=== PATIENT | male | born 1975 | race Caucasian/White ===

== ENCOUNTER 2020-09-19 11:58 | Emergency (ER) | payer MEDICARE, SELFPAY ==
[2020-09-19 12:00] VITALS: BP 144/93; PULSE 71; RESP 15; TEMP 36.7; O2SAT 99; BMI 25.3
--- NOTE | 2020-09-19 12:03 | RAD_ITS ---
STUDY: X-RAY CHEST REASON FOR EXAM: Male, 45 years old. Chest pain TECHNIQUE: Single AP portable view of the chest. COMPARISON: Comparison is made with prior examination of 06/09/2011. FINDINGS: EKG electrodes are seen. Hyperinflation. The lungs are clear. There is no demonstrated pleural abnormality. Normal size heart. Normal mediastinum and raymond. Normal visualized pulmonary arteries. Normal visualized aortic arch and descending thoracic aorta. Normal visualized thoracic spine. Normal visualized ribs, clavicles, and shoulders. There is no demonstrated abnormality of the visualized soft tissue structures of the upper abdomen. RAD/Chest 1 View (Portable) IMPRESSION: Normal x-ray examination of the chest. Electronically Signed: Aram Robin MD at 12:38 EDT , Service support ,
--- NOTE | 2020-09-19 12:03 | EKG12_ITS ---
Test Reason : VITO PAIN Blood Pressure : / mmHG Vent. Rate : 067 BPM Atrial Rate : 067 BPM P-R Int : 148 ms QRS Dur : 084 ms QT Int : 394 ms P-R-T Axes : 050 -10 017 degrees QTc Int : 416 ms Normal sinus rhythm Septal infarct , age undetermined Abnormal ECG Confirmed by TAISHA SALVADOR, SAMUEL ([id number]), videotape editor MIRLANDE MARQUES ([id number]) on 09/23/2020 9:12:57 AM Referred By: SONJA Confirmed By:DONNA SUMNER MD
--- NOTE | 2020-09-19 12:04 | ED.DCSUM_ITS ---
History of Present Illness Chief Complaint: Chest Pain Informant: Patient Onset: Today Context: Gradual Onset Timing: Continuous Current Severity: Moderate Maximum Severity: Moderate Narrative: Patient is a 45-year-old male medical history significant for pots syndrome who presents to the emergency department chest pain. 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 He states at 9 AM, he began to have pain in the left side of his chest. He states it radiates to his left shoulder. He denies shortness of breath. He denies nausea or vomiting. He has no history of coronary vascular disease. He does not smoke. He states he is otherwise been in his normal state of health. He does have history of daily migraines. He states from time to time, he will get pain with his pots, but not like this. Prior similar symptoms: Yes Recent Illness/Hospitalization: No Past Medical History - Allergies and Home Meds Allergies/Adverse Reactions: Allergies indomethacin Adverse Reaction (Verified 09/19/20 11:59) Chest tightness ketorolac [From Toradol] Adverse Reaction (Verified 09/19/20 11:59) Chest tightness meperidine [From Demerol] Adverse Reaction (Verified 09/19/20 11:59) Chest tightness Morpholine Analogues Adverse Reaction (Verified 09/19/20 11:59) Chest tightness Primary Care Physician: NOT,DEFINED [NON-STAFF] - Prior records reviewed: Yes Past Medical History: - - Chronic daily migraines, pots syndrome Surgical History: noncontributory Smoking Status: Never smoker Review of Systems General: Denies: Chills, Fever, Sweats Eyes: Denies: Visual changes - bilaterally, Diplopia ENT: Denies: Rhinorrhea, Sore throat Cardiovascular: Reports: Chest pain. Denies: Palpitations Respiratory: Denies: Dyspnea, Cough, Dyspnea on exertion Gastrointestinal: Denies: Abdominal pain, Nausea, Vomiting, Diarrhea, Melena, Hematochezia Genitourinary: Denies: Dysuria, Hematuria, Frequency Musculoskeletal: Denies: Back pain, Extremity Pain Skin: Denies: Rash, Wounds Neurological: Denies: Headache, Weakness, Numbness Physical Exam Vital Signs/Narrative: Vital Signs Temp Pulse Resp BP Pulse Ox 09/19/20 12:00 98.0 F 71 15 144/93 H 99 Inital Vital Signs reviewed: Yes General: Well nourished, Well developed, No Acute Distress Head: Normocephalic, Atraumatic Eyes: Perrl, EOMI ENT: Moist mucous membranes, No rhinorrhea Neck: Supple, Nontender Cardiovascular: Regular rate, Regular rhythm, No murmurs Respiratory: No distress, CTA bilaterally, Chest nontender Abdomen: Soft, Nontender, Nondistended, Normal bowel sounds Back: Nontender, Normal Inspection Extremities: Nontender, No edema Skin: Normal color, No rash Neurological: Alert, Oriented x3, Cranial nerves II-XII grossly intact, Normal Strength, Normal Sensation Psychological: Normal affect, Normal Mood Diagnostic/Tx/Re-eval Chest X-Ray - ED: 1 View, Read by ED Physician, Read by Radiologist, Normal, Heart, Lungs, Mediastinum, Bony Structures Clinical Impression(s) from Imaging Studies Chest X-Ray 09/19/20 12:03 IMPRESSION: Normal x-ray examination of the chest. Electronically Signed: Aram Robin MD at 12:38 EDT , Service support , Abnormal Lab Results 09/19/20 09/19/20 09/19/20 12:17 12:17 12:17 WBC 7.0 RBC 4.88 Hgb 14.9 Hct 45.1 MCV 92.4 MCH 30.5 MCHC 33.0 RDW Std Deviation 42.7 RDW Coeff of Bryan 12.5 Plt Count 184 MPV 10.2 Immature Gran % (Auto) 0.100 Neut % (Auto) 58.3 Lymph % (Auto) 27.9 [place] % (Auto) 8.1 Eos % (Auto) 5.0 Baso % (Auto) 0.6 Absolute Neuts (auto) 4.1 Absolute Lymphs (auto) 1.95 Nucleated RBC % 0 D-Dimer Quant (PE/DVT) <= 0.27 Sodium 135 L Potassium 4.2 Chloride 102 Carbon Dioxide 31.0 Anion Gap 2 L BUN 19 H Creatinine 1.15 Estim Creat Clear Calc 92.64 Est GFR (MDRD) Af Amer 89 Est GFR (MDRD) Non-Af 73 BUN/Creatinine Ratio 16.5 Glucose 131 H Calcium 9.0 Troponin I < 0.015 - Rhythm Strip Rhythm Strip: Sinus Rhythm Rate: 80 Ectopy: None - EKG Initial EKG Interpretation: Sinus Rhythm, No Acute Injury Pattern Prior: Unchanged - Medical Decision Making Patient presents with chest pain on the left side. He has no history of coronary vascular disease. EKG was obtained promptly on arrival. There is no evidence of acute ischemia. The patient has a heart score of 1. He underwent metabolic work-up. Cardiac enzymes were normal. This is done 3 hours after his chest pain onset. I do not feel that his pain represents acute coronary syndrome. I did discuss options with the patient. He states that he just wants to go home and follow-up. He has multiple allergies and states that he would just take Tylenol. I do feel that this is reasonable. The patient is comfortable with this plan of care. His D-dimer was negative. His chest x-ray shows no evidence of acute infiltrative process, pneumothorax, or other infiltrative process. Patient to be discharged home. Impression 1. Chest pain ED Disposition - Plan for ED Patient: Disposition: Home or Assisted Living Instructions: ED Chest Pain, Uncertain Cause Referrals: NOT,DEFINED [NON-STAFF] -
[2020-09-19 12:05] VITALS: O2SAT 97
--- NOTE | 2020-09-19 12:06 | NURSING ---
NO OLD EKGS
[2020-09-19] MEDS: 0.9% Normal Saline 1,000 ML 150 ML IV (12:13)
[2020-09-19] MEDS: Acetaminophen 500 MG Tablet 1000 MG PO (12:13)
[2020-09-19 12:21] LABS: Absolute Lymphocyte Count 1.95 X10^3/uL (0.83-4.51); Absolute Neutrophil Count 4.1 X10^3/uL (2.0-7.7); Basophil# 0.04 X10^3/uL; Basophil% 0.6 % (0-1); Eosinophil# 0.35 X10^3/uL; Hematocrit 45.1 % (40-54); Hemoglobin 14.9 g/dL (13.0-16.5); Lymphocyte # 1.95 X10^3/ul (0.83-4.51); Lymphocyte % 27.9 % (19-41); Mean Corpuscular Hgb 30.5 pg (27.0-32.0); Mean Corpuscular Volume 92.4 fL (80-94); Mean Platelet Vol. 10.2 fl (6.2-12.0); Monocyte# 0.57 X10^3/uL; Monocyte% 8.1 % (0-10); NRBC Flagged by Analyzer 0 % (0-5); Neutrophil # 4.08 X10^3/uL (2.7-7.7); Neutrophil % 58.3 % (47-70); Platelet Count 184 K/mm3 (150-450); RBC Distribution Width CV 12.5 % (11.6-14.6); RBC Distribution Width SD 42.7 fl (35.1-43.9); Red Blood Count 4.88 M/mm3 (4.6-6.2)
[2020-09-19 12:39] LABS: Anion Gap 2 (5-15); BUN 19 mg/dL (7-18); BUN/Creat Ratio 16.5 RATIO (10-20); Chloride 102 mmol/L (98-107); Creatinine, Serum 1.15 mg/dL (0.70-1.30); EST Glomerular Filtration Rate 73 mL/min (>60); Est Glom Filt Rate - Afr Amer 89 mL/min (>60); Estimated Creatinine Clearance 92.64 ml/min; Glucose 131 mg/dL (74-106); Potassium 4.2 mmol/L (3.5-5.1); Sodium Level 135 mmol/L (136-145)
[2020-09-19 12:52] LABS: D-Dimer Quantitative (DVT/PE) <= 0.27 FEU/ug/m (0.27-0.49)
[2020-09-19 13:09] VITALS: BP 124/87; PULSE 81; RESP 19; O2SAT 98
== END 2020-09-19 13:09 | disposition home or self-care (01) ==
LOC: ED 12:37
PROVIDERS: Emergency Provider Emergency Medicine; PCP Internal Medicine
DX: R07.9 Chest pain, unspecified (principal); I49.8 Other specified cardiac arrhythmias; Z79.899 Other long term (current) drug therapy
CPT/HCPCS: 71045; 80048; 84484; 85025; 85379; 93005; 96360; 96361; 99285; J7030; A4216

== ENCOUNTER 2021-07-28 11:13 | Outpatient (CLI) | payer SELFPAY ==
--- NOTE | 2021-07-30 16:50 | EKG12_ITS ---
Test Reason : PREOP Blood Pressure : / mmHG Vent. Rate : 077 BPM Atrial Rate : 077 BPM P-R Int : 136 ms QRS Dur : 086 ms QT Int : 358 ms P-R-T Axes : 056 -12 048 degrees QTc Int : 405 ms Normal sinus rhythm with sinus arrhythmia Septal infarct , age undetermined Abnormal ECG Confirmed by ERNIE SALVADOR, VIV ([id number]), supervising editor news reel MIRLANDE MARQUES ([id number]) on 08/03/2021 11:41:18 AM Referred By: Ap Perrin Confirmed By:VIV KLEIN MD
[2021-07-30 17:14] LABS: Hematocrit 43.5 % (40-54); Hemoglobin 15.1 g/dL (13.0-16.5); Mean Corp Hgb Conc 34.7 g/dL (32-36); Mean Corpuscular Hgb 31.5 pg (27.0-32.0); Mean Corpuscular Volume 90.6 fL (80-94); Mean Platelet Vol. 9.7 fl (6.2-12.0); Platelet Count 243 K/mm3 (150-450); RBC Distribution Width CV 12.6 % (11.6-14.6); RBC Distribution Width SD 41.9 fl (35.1-43.9); White Blood Count 6.9 K/mm3 (4.4-11.0)
[2021-07-30 17:57] LABS: Anion Gap 5 (5-15); BUN 17 mg/dL (7-18); BUN/Creat Ratio 14.7 RATIO (10-20); Calcium,Total 9.3 mg/dL (8.5-10.1); Chloride 106 mmol/L (98-107); Creatinine, Serum 1.16 mg/dL (0.70-1.30); EST Glomerular Filtration Rate 72 mL/min (>60); Est Glom Filt Rate - Afr Amer 88 mL/min (>60); Glucose 99 mg/dL (74-106); Potassium 3.8 mmol/L (3.5-5.1); Sodium Level 136 mmol/L (136-145)
== END 2021-07-28 23:59 | disposition home or self-care (01) ==
LOC: PAT 08-20 11:13
PROVIDERS: PCP Internal Medicine; Referring Provider Orthopaedic Surgery; Visit Provider Orthopaedic Surgery
DX: Z01.810 Encounter for preprocedural cardiovascular examination (principal)
CPT/HCPCS: 36415; 80048; 85027; 87426; 93005; C9803

== ENCOUNTER 2022-02-02 06:58 | Emergency (ER) | payer OTHER, SELFPAY ==
[2022-02-02 06:59] VITALS: BP 142/79; PULSE 72; RESP 18; TEMP 36.8; O2SAT 100; BMI 24.0
--- NOTE | 2022-02-02 07:24 | ED.VIS.CHEST ---
HPI History of Present Illness Chief Complaint: Chest Pain Informant: patient Onset/Context/Timing Onset: Yesterday Activity at onset: gradual Timing: Continuous Quality: Positive for Sharp Location: Left Chest Worsened By: Movement of Arm and Breathing Relieved By: Nothing Associated Symptoms: Positive for Diaphoresis and Lightheadedness; Negative for Nausea, Vomiting, Dyspnea, Cough, Fever, Acid Reflux or Palpitations Narrative Narrative: Patient presents with chest pain that began yesterday. Patient states it was intermittent yesterday but today it has been constant. Patient describes the pain as sharp. Patient states it is over the left upper chest. Patient states it radiates into her shoulder. Patient states it is worse with movement of his left arm and with deep breathing. Patient does admit to some occasional sweats. Patient also admits to some lightheadedness. Patient denies any nausea or vomiting. Patient denies any shortness of breath or cough. CVD Risk Factors: Positive for Family History 1' </=55; Negative for Hypertension, Diabetes, Hypercholesterolemia or Smoking PE Risk Factors: Negative for Recent Travel/Surgery, Recent Immobilization, Prior DVT or PE, Cancer or OCP + Smoking + >/=35 PFSH PFSH Medical History Anxiety Arthritis Depression Difficulty swallowing Gastric reflux Injury of head and neck Loose, teeth Marijuana use Migraine headache POTS (postural orthostatic tachycardia syndrome) Syncope Home Medications aspirin 81 mg capsule 81 mg PO DAILY 07/28/21 [History Last Taken Unknown] Allergy/AdvReac Type Severity Reaction Status Date / Time indomethacin AdvReac Chest Verified 07/28/21 14:02 tightness ketorolac [From Toradol] AdvReac Chest Verified 07/28/21 14:02 tightness meperidine [From Demerol] AdvReac Chest Verified 07/28/21 14:02 tightness Morpholine Analogues AdvReac Chest Verified 07/28/21 14:02 tightness Surgical History History of cardiac catheterization Hx of appendectomy Hx of cholecystectomy Hx of esophagogastroduodenoscopy Hx of knee surgery Social History Smoking Status: Never smoker ROS ROS ED Constitutional Constitutional ED: Denies chills or fever(s) Eyes Eyes: Denies blurry vision or change in vision ENT ENT ED: Reports sore throat; Denies rhinorrhea Cardiovascular Cardiovascular: Reports chest pain; Denies palpitations Respiratory/Chest Respiratory/Chest: Reports dyspnea; Denies cough Gastrointestinal Gastrointestinal: Denies abdominal pain, nausea or vomiting Genitourinary Genitourinary ED: Denies dysuria or hematuria Musculoskeletal Musculoskeletal: Reports neck pain; Denies back pain Integumentary Denies abscess or rash Neurologic Neurologic: Reports headache(s); Denies weakness Allergic/Immunologic Allergic/Immunologic ED: Denies mouth swelling or urticaria EXAM Physical Exam Const Vital Signs: 02/02/22 06:59 02/02/22 07:04 02/02/22 07:36 Temperature 98.2 F Temperature Source Oral Pulse Rate 72 63 Respiratory Rate 18 Respiratory Effort Normal Non-Labored Blood Pressure 142/79 H 133/73 H Blood Pressure Mean 100 Pulse Ox 100 Oxygen Delivery Method Room Air 02/02/22 07:38 02/02/22 07:43 02/02/22 07:49 Temperature Temperature Source Pulse Rate 71 78 Respiratory Rate Respiratory Effort Blood Pressure 135/81 H 122/79 H Blood Pressure Mean Pulse Ox Oxygen Delivery Method Room Air 02/02/22 08:08 02/02/22 09:31 Temperature Temperature Source Pulse Rate 78 59 L Respiratory Rate 17 16 Respiratory Effort Blood Pressure 116/83 H 107/64 Blood Pressure Mean 94 78 Pulse Ox 98 99 Oxygen Delivery Method Room Air Room Air Positive well nourished and well developed General Appearance ED: well developed and NAD HEENT normocephalic and atraumatic Eyes PERRL and EOMs intact bilaterally Neck supple and no JVD Chest Wall palpation of chest normal Resp normal respiratory effort and clear to auscultation bilaterally Effort and Inspection: Negative for respiratory distress Cardio regular rate, regular rhythm and no murmurs GI normal to inspection, nondistended, normoactive bowel sounds, soft to palpation, non-tender and non-distended Extremity normal to inspection General Extremety ED: Negative for edema or tenderness General Extremity: Negative for edema Neuro oriented x3, CN's II-XII intact bilaterally and no sensory deficits noted Sensorium / Orientation: awake and alert Motor Exam: strength 5/5 throughout Psych mental status grossly normal Heart Score History: Slightly/Non-Suspicious ECG: Normal Age: </= 45 years Risk Factors: 1 or 2 Risk Factors Troponin: </= Normal Limit Score: 1 MDM MDM MDM Narrative Medical decision making narrative: Patient was given aspirin and sublingual nitroglycerin here. EKG was obtained. On my interpretation, it showed a normal sinus rhythm with a rate of 69. UT interval, QRS interval, and QTc intervals were all normal. [place] was normal. There are no acute ST or T wave changes. Portable 1 view chest x-ray was obtained. On my interpretation, lung mckeon are clear. There is normal cardiac silhouette. Bony thorax is normal. There is no acute process noted. Radiologist also interpreted the x-ray and agrees. CBC was within normal limits. Basic metabolic profile was within normal limits. High-sensitivity troponin was normal. Patient had no relief of his chest pain with nitroglycerin. A 2-hour repeat high-sensitivity troponin was obtained. This was unchanged. Patient had is a HEART score of 1. Patient was advised that this is low risk for acute cardiac event. Patient was advised of his findings. Patient was instructed to follow-up with his primary care physician in 5 to 7 days. Patient understood and was agreeable with the plan. All questions were answered. Lab Data Attestation: I reviewed the patient's lab results. Labs: Laboratory Results - last 24 hr 02/02/22 02/02/22 02/02/22 07:08 07:08 09:40 WBC 6.7 RBC 4.55 L Hgb 14.1 Hct 42.3 MCV 93.0 MCH 31.0 MCHC 33.3 RDW Std Deviation 42.8 RDW Coeff of [place] 12.5 Plt Count 182 MPV 10.5 Immature Gran % (Auto) 0.300 Neut % (Auto) 56.5 Lymph % (Auto) 30.1 [place] % (Auto) 7.1 Eos % (Auto) 5.6 H Baso % (Auto) 0.4 Absolute Neuts (auto) 3.8 Absolute Lymphs (auto) 2.03 Nucleated RBC % 0 Sodium 141 Potassium 4.1 Chloride 104 Carbon Dioxide 29.0 Anion Gap 8 BUN 14 Creatinine 1.03 Estim Creat Clear Calc 99.41 Est GFR (MDRD) Af Amer 100 Est GFR (MDRD) Non-Af 83 BUN/Creatinine Ratio 13.6 Glucose 102 Calcium 9.1 Troponin I High Sens 4 4 Radiography Chest X-Ray - ED: 1 View, Read by ED Physician, Read by Radiologist and No Acute Disease Diagnostic Testing: Clinical Impression(s) from Imaging Studies Chest X-Ray 02/02/22 07:28 IMPRESSION: Normal x-ray examination of the chest. Electronically Signed: Aram Robin MD at 8:00 EDT , EKG Initial EKG: Attestation: I personally reviewed and interpreted this EKG as follows: Interpretation: Sinus Rhythm (69) and No Acute Injury Pattern Prior EKG tracings: available for review Prior: Unchanged (07/30/2021) Discharge Plan Triage Chief Complaint: Chest Pain ED Provider: Shravan Taylor Dx/Rx/DC Orders Clinical Impression: Chest pain of uncertain etiology Instructions: ED Chest Pain, Uncertain Cause Prescriptions: No Action aspirin 81 mg Capsule 81 mg PO DAILY Primary Care Provider: Care Physician,No Primary Referrals: Charley Cordero MD [Med Staff - [employer]] - 5-7 Days Disposition Disposition: Home, Self Care
--- NOTE | 2022-02-02 07:28 | RAD_ITS ---
STUDY: X-RAY CHEST REASON FOR EXAM: Male, 46 years old. Chest pain TECHNIQUE: Single AP portable view of the chest. COMPARISON: Comparison is made with prior study 09/19/2020. FINDINGS: EKG electrodes are seen. The lungs are clear and expanded. There is no demonstrated pleural abnormality. Normal size heart. Normal mediastinum and raymond. Normal visualized pulmonary arteries. Normal visualized aortic arch and descending thoracic aorta. Normal visualized thoracic spine. Normal visualized ribs, clavicles, and shoulders. There is no demonstrated abnormality of the visualized soft tissue structures of the upper abdomen. RAD/Chest 1 View (Portable) IMPRESSION: Normal x-ray examination of the chest. Electronically Signed: Aram Robin MD at 8:00 EDT ,
--- NOTE | 2022-02-02 07:28 | EKG12_ITS ---
Test Reason : cp Blood Pressure : / mmHG Vent. Rate : 069 BPM Atrial Rate : 069 BPM P-R Int : 134 ms QRS Dur : 084 ms QT Int : 402 ms P-R-T Axes : 057 016 039 degrees QTc Int : 430 ms Normal sinus rhythm Septal infarct (cited on or before 19-SEP-2020) Abnormal ECG When compared with ECG of 30-JUL-2021 16:54, No significant change was found Confirmed by LISSA SALVADOR, ADEBAYO ([id number]), publication editor MIRLANDE MARQUES ([id number]) on 02/10/2022 11:26:33 AM Referred By: Nataly Confirmed By:ADEBAYO ALCARAZ MD
[2022-02-02 07:36] VITALS: BP 133/73; PULSE 63
[2022-02-02] MEDS: Aspirin 81 MG TAB.CHEW 324 MG PO (07:36)
[2022-02-02] MEDS: Nitroglycerin SL (ED/IMG/CATH) 0.4 MG TABLET SL ×3 (07:36→07:49)
[2022-02-02 07:42] LABS: Absolute Lymphocyte Count 2.03 X10^3/uL (0.83-4.51); Absolute Neutrophil Count 3.8 X10^3/uL (2.0-7.7); Basophil# 0.03 X10^3/uL; Basophil% 0.4 % (0-1); Eosinophil# 0.38 X10^3/uL; Eosinophils% 5.6 % (0-5); Hematocrit 42.3 % (40-54); Hemoglobin 14.1 g/dL (13.0-16.5); Lymphocyte # 2.03 X10^3/ul (0.83-4.51); Lymphocyte % 30.1 % (19-41); Mean Corp Hgb Conc 33.3 g/dL (32-36); Mean Platelet Vol. 10.5 fl (6.2-12.0); Monocyte# 0.48 X10^3/uL; Monocyte% 7.1 % (0-10); NRBC Flagged by Analyzer 0 % (0-5); Neutrophil % 56.5 % (47-70); Platelet Count 182 K/mm3 (150-450); RBC Distribution Width CV 12.5 % (11.6-14.6); RBC Distribution Width SD 42.8 fl (35.1-43.9); Red Blood Count 4.55 M/mm3 (4.6-6.2); White Blood Count 6.7 K/mm3 (4.4-11.0)
[2022-02-02 07:43] VITALS: BP 135/81; PULSE 71
[2022-02-02 07:49] VITALS: BP 122/79; PULSE 78
[2022-02-02 08:00] LABS: Anion Gap 8 (5-15); BUN 14 mg/dL (7-18); BUN/Creat Ratio 13.6 RATIO (10-20); Calcium,Total 9.1 mg/dL (8.5-10.1); Chloride 104 mmol/L (98-107); Creatinine, Serum 1.03 mg/dL (0.70-1.30); EST Glomerular Filtration Rate 83 mL/min (>60); Est Glom Filt Rate - Afr Amer 100 mL/min (>60); Estimated Creatinine Clearance 99.41 ml/min; Glucose 102 mg/dL (74-106); Potassium 4.1 mmol/L (3.5-5.1); Sodium Level 141 mmol/L (136-145); Troponin-I HS (w/2H Reflex) 4 pg/mL (3.0-78.0)
[2022-02-02 08:08] VITALS: BP 116/83; PULSE 78; RESP 17; O2SAT 98
[2022-02-02 09:31] VITALS: BP 107/64; PULSE 59; RESP 16; O2SAT 99
[2022-02-02 09:36] LABS: Reflex Troponin-HS? (from REC) Y
[2022-02-02 10:08] LABS: Troponin-I HS 4 pg/mL (3.0-78.0)
== END 2022-02-02 10:44 | disposition home or self-care (01) ==
PROVIDERS: Emergency Provider Emergency Medicine; Visit Provider Emergency Medicine
DX: R07.9 Chest pain, unspecified (principal); Z79.82 Long term (current) use of aspirin
CPT/HCPCS: 71045; 80048; 84484; 85025; 93005; 99283; A4216